=== PATIENT | female | born 1970 | race Caucasian/White ===

== ENCOUNTER 2018-02-27 19:13 | Emergency (ER) | payer OTHER ==
[~2018-02-27] VITALS: Ht 162.6 cm; Wt 60.0 kg
[2018-02-27 20:50] VITALS: BP 138/82
== END 2018-02-27 21:08 | disposition left against medical advice (07) ==
LOC: ER 19:37
DX: F48.8 Other specified nonpsychotic mental disorders (principal); G40.909 Epilepsy, unspecified, not intractable, without status epilepticus; F41.9 Anxiety disorder, unspecified; Z91.14 Patient's other noncompliance with medication regimen
CPT/HCPCS: 99283